=== PATIENT | female | born 1950 | race Caucasian/White ===

== ENCOUNTER 2024-04-28 23:18 | Emergency (ER) | payer BC, OTHER, SELFPAY ==
[2024-04-28 23:22] VITALS: BP 146/73
[2024-04-29 01:10] LABS: Glucose - Point of Care 264 mg/dl (70-99)
[2024-04-29 01:12] VITALS: BP 185/81
[2024-04-29 01:15] VITALS: BMI 29.3
[2024-04-29 01:23] VITALS: BP 185/81
[2024-04-29 02:30] VITALS: BP 185/79
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
[2024-04-29] MEDS: TYLENOL 1000 MG PO (03:08)
[2024-04-29] MEDS: DECADRON 10 MG IV (03:08)
[2024-04-29] MEDS: DILAUDID 0.5 MG IV (03:08)
[2024-04-29] MEDS: VALIUM 2 MG PO (03:09)
[2024-04-29 04:00] VITALS: BP 164/73
[2024-04-29] MEDS: TYLENOL 650 MG PO (10:00)
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
[2024-04-29] MEDS: NORCO 5/325 1 TABLET PO (11:09)
== END 2024-04-29 12:45 | disposition home or self-care (01) ==
LOC: EMR 23:18
PROVIDERS: EMERGENCY PHYSICIAN Emergency Medicine
DX: S32.019A Unspecified fracture of first lumbar vertebra, initial encounter for closed fracture (principal); V89.2XXA Person injured in unspecified motor-vehicle accident, traffic, initial encounter; Y92.410 Unspecified street and highway as the place of occurrence of the external cause
CPT/HCPCS: 99283; 96374; 71046; 72100; 82962